=== PATIENT | male | born 1995 | race Caucasian/White ===

== ENCOUNTER 2017-03-15 19:51 | Emergency (ER) | payer OTHER ==
[~2017-03-15] VITALS: Ht 182.8 cm; Wt 79.4 kg
[~2017-03-15 19:51] MED LIST: AMOXICILLIN TRI1 POW; ANAPROX DS550 MG PO; BACTRIM DS 8001 TA1 PO; BACTROBAN CREAM15 GM PO; CLARITIN5 MG/5 ML; CLINDAMYCIN HC300 MG PO; DOXYCYCLINE HY100 M3 PO; FLEXERIL10 MG PO; KEFLEX500 M1 PO; MOTRIN400 MG PO; MOTRIN800 MG PO; Motrin,Rufen800 MG PO; NAPROSYN500 MG PO; NORCO 325 MG-51 TAB PO; PEPCID20 MG PO; PREDNICOT20 MG PO; PREDNISONE10 MG PO; PREDNISONE20 M1 PO; VIBRAMYCIN100 MG PO; VICODIN 5/500 505 MG PO
[2017-03-15 20:35] VITALS: BP 124/65
[2017-03-15] MEDS ORDERED: ATARAX,VISTARIL50 MG PO (20:46)
== END 2017-03-15 20:56 | disposition home or self-care (01) ==
LOC: ED 19:51
DX: L25.5 Unspecified contact dermatitis due to plants, except food (principal); F17.200 Nicotine dependence, unspecified, uncomplicated; Z88.6 Allergy status to analgesic agent; Z88.7 Allergy status to serum and vaccine; Z88.8 Allergy status to other drugs, medicaments and biological substances

== ENCOUNTER → 2017-04-20 | Outpatient (CLI) | payer OTHER ==
[~2017-04-20] MED LIST changes: +ATARAX,VISTARIL50 MG PO
== END | disposition home or self-care (01) ==
LOC: RAD 17:01
DX: M25.561 Pain in right knee (principal)

== ENCOUNTER 2017-06-28 18:56 | Emergency (ER) | payer OTHER ==
[~2017-06-28] VITALS: Ht 182.8 cm; Wt 79.4 kg
[2017-06-28 19:12] VITALS: BP 123/71
[2017-06-28] MEDS ORDERED: CEPHALEXIN500 M1 PO (20:47)
== END 2017-06-28 21:37 | disposition home or self-care (01) ==
LOC: ED 18:56
DX: L08.89 Other specified local infections of the skin and subcutaneous tissue (principal); F17.200 Nicotine dependence, unspecified, uncomplicated; Z88.7 Allergy status to serum and vaccine; Z88.5 Allergy status to narcotic agent; Z88.6 Allergy status to analgesic agent

== ENCOUNTER 2017-07-10 17:57 | Emergency (ER) | payer OTHER ==
[~2017-07-10] VITALS: Wt 79.4 kg
[~2017-07-10 17:57] MED LIST changes: +CEPHALEXIN500 M1 PO
[2017-07-10 18:01] VITALS: BP 124/56
== END 2017-07-10 18:51 | disposition home or self-care (01) ==
LOC: ED 17:57
DX: S05.8X2A Other injuries of left eye and orbit, initial encounter (principal); F17.200 Nicotine dependence, unspecified, uncomplicated; Z88.7 Allergy status to serum and vaccine; Z88.6 Allergy status to analgesic agent; Z88.8 Allergy status to other drugs, medicaments and biological substances; X58.XXXA Exposure to other specified factors, initial encounter; Y93.9 Activity, unspecified; Y92.9 Unspecified place or not applicable; Y99.9 Unspecified external cause status

== ENCOUNTER 2017-11-13 19:40 | Emergency (ER) | payer SELFPAY ==
[~2017-11-13] VITALS: Ht 182.8 cm; Wt 65.8 kg
[2017-11-13 19:46] VITALS: BP 122/67
[2017-11-13] MEDS ORDERED: AMOXICILLIN500 M3 PO (21:03)
== END 2017-11-13 21:07 | disposition home or self-care (01) ==
LOC: ED 19:40
DX: R50.9 Fever, unspecified (principal); F17.200 Nicotine dependence, unspecified, uncomplicated; Z88.6 Allergy status to analgesic agent; Z88.8 Allergy status to other drugs, medicaments and biological substances; Z88.7 Allergy status to serum and vaccine

== ENCOUNTER 2019-04-25 23:47 | Emergency (ER) | payer OTHER ==
[~2019-04-25] VITALS: Ht 182.8 cm; Wt 64.9 kg
[~2019-04-25 23:47] MED LIST changes: +AMOXICILLIN500 M3 PO
[2019-04-25 23:48] VITALS: BP 115/75
[2019-04-26] MEDS ORDERED: MOBIC7.5 MG PO (01:32)
[2019-04-26] MEDS ORDERED: CYCLOBENZAPRINE10 MG PO (01:32)
== END 2019-04-26 01:47 | disposition home or self-care (01) ==
LOC: ED 23:47
DX: S16.1XXA Strain of muscle, fascia and tendon at neck level, initial encounter (principal); S46.912A Strain of unspecified muscle, fascia and tendon at shoulder and upper arm level, left arm, initial encounter; F17.200 Nicotine dependence, unspecified, uncomplicated; Z88.7 Allergy status to serum and vaccine; Z88.5 Allergy status to narcotic agent; Z88.8 Allergy status to other drugs, medicaments and biological substances; V89.2XXA Person injured in unspecified motor-vehicle accident, traffic, initial encounter; Y93.89 Activity, other specified; Y92.89 Other specified places as the place of occurrence of the external cause; Y99.8 Other external cause status

== ENCOUNTER 2019-07-29 16:12 | Emergency (ER) | payer SELFPAY ==
[~2019-07-29] VITALS: Ht 182.8 cm; Wt 68.0 kg
[~2019-07-29 16:12] MED LIST changes: +CYCLOBENZAPRINE10 MG PO; +MOBIC7.5 MG PO
[2019-07-29 16:14] VITALS: BP 129/74
[2019-07-29] MEDS ORDERED: PREDNISONE20 M1 PO (16:39)
[2019-07-29] MEDS ORDERED: LIDEX 0.05% CRE15 GM T (16:39)
== END 2019-07-29 16:46 | disposition home or self-care (01) ==
LOC: ED 16:12
DX: L25.9 Unspecified contact dermatitis, unspecified cause (principal); Z88.7 Allergy status to serum and vaccine; Z88.6 Allergy status to analgesic agent; Z88.8 Allergy status to other drugs, medicaments and biological substances

== ENCOUNTER 2019-12-14 19:14 | Emergency (ER) | payer SELFPAY ==
[~2019-12-14] VITALS: Ht 185.4 cm; Wt 79.4 kg
[~2019-12-14 19:14] MED LIST changes: +LIDEX 0.05% CRE15 GM T
[2019-12-14 19:21] VITALS: BP 130/78
[2019-12-14] MEDS ORDERED: Motrin,Rufen800 MG PO (21:14)
[2019-12-14] MEDS ORDERED: CYCLOBENZAPRINE5 M3 PO (21:14)
== END 2019-12-14 21:29 | disposition home or self-care (01) ==
LOC: ED 19:14
DX: S16.1XXA Strain of muscle, fascia and tendon at neck level, initial encounter (principal); S89.91XA Unspecified injury of right lower leg, initial encounter; Z88.7 Allergy status to serum and vaccine; Z88.5 Allergy status to narcotic agent; Z88.8 Allergy status to other drugs, medicaments and biological substances; Z79.899 Other long term (current) drug therapy; V49.9XXA Car occupant (driver) (passenger) injured in unspecified traffic accident, initial encounter; Y93.I9 Activity, other involving external motion; Y92.488 Other paved roadways as the place of occurrence of the external cause; Y99.8 Other external cause status

== ENCOUNTER 2020-07-31 11:54 | Emergency (ER) | payer SELFPAY ==
[~2020-07-31] VITALS: Wt 68.0 kg
[~2020-07-31 11:54] MED LIST changes: +CYCLOBENZAPRINE5 M3 PO
[2020-07-31 11:58] VITALS: BP 112/47
== END 2020-07-31 13:56 | disposition home or self-care (01) ==
LOC: ED 11:54
DX: S93.401A Sprain of unspecified ligament of right ankle, initial encounter (principal); Y99.8 Other external cause status; F17.200 Nicotine dependence, unspecified, uncomplicated; X58.XXXA Exposure to other specified factors, initial encounter; Y93.89 Activity, other specified; Y92.89 Other specified places as the place of occurrence of the external cause

== ENCOUNTER 2021-01-02 21:45 | Emergency (ER) | payer SELFPAY ==
[2021-01-02 21:50] VITALS: BP 130/84
[2021-01-02 22:23] LABS: BILIRUBIN Negative (Negative); BLOOD 2+ (Negative); CLARITY Clear (Clear); COLOR Yellow (Yellow); GLUCOSE Negative (Negative); KETONE Trace (Negative); LEUKO ESTERASE 2+ (Negative); NITRITE Negative (Negative); PH 5.5 (4.5-8.0); SPECIFIC GRAVITY >= 1.030 (1.001-1.030)
[2021-01-02 22:45] LABS: BACTERIA TRACE; EPITHELIAL CELLS 0-2; RBC 16-20 rbc/hpf (0-2); WBC 21-30 wbc/hpf (0-5)
[2021-01-02 22:46] LABS: MUCOUS 1+
== END 2021-01-02 22:50 | disposition home or self-care (01) ==
LOC: ED 21:45
PROVIDERS: Nurse Practitioner Family
DX: Z11.3 Encounter for screening for infections with a predominantly sexual mode of transmission (principal); Z88.8 Allergy status to other drugs, medicaments and biological substances; Z88.5 Allergy status to narcotic agent

== ENCOUNTER 2021-01-21 21:48 | Emergency (ER) | payer BC ==
[2021-01-21 21:56] VITALS: BP 119/70
[2021-01-21 22:35] LABS: BILIRUBIN Negative (Negative); BLOOD Trace-Lysed (Negative); CLARITY Clear (Clear); COLOR Yellow (Yellow); GLUCOSE Negative (Negative); KETONE Trace (Negative); LEUKO ESTERASE Negative (Negative); NITRITE Negative (Negative); SPECIFIC GRAVITY 1.025 (1.001-1.030)
== END 2021-01-21 22:52 | disposition home or self-care (01) ==
LOC: ED 21:48
PROVIDERS: Emergency Medicine
DX: Z11.3 Encounter for screening for infections with a predominantly sexual mode of transmission (principal); F17.200 Nicotine dependence, unspecified, uncomplicated; Z88.5 Allergy status to narcotic agent; Z88.8 Allergy status to other drugs, medicaments and biological substances

== ENCOUNTER 2021-03-10 17:39 | Emergency (ER) | payer BC ==
[~2021-03-10] VITALS: Wt 79.4 kg
[2021-03-10 17:46] VITALS: BP 123/80
[2021-03-10] MEDS ORDERED: MEDROL DOSEPAK4 MG PO (18:04)
[2021-03-10] MEDS ORDERED: CLARITIN10 MG PO (18:04)
== END 2021-03-10 18:16 | disposition home or self-care (01) ==
LOC: ED 17:39
DX: L23.7 Allergic contact dermatitis due to plants, except food (principal); Z88.8 Allergy status to other drugs, medicaments and biological substances; Z88.5 Allergy status to narcotic agent

== ENCOUNTER 2021-04-11 15:40 | Emergency (ER) | payer BC ==
[~2021-04-11] VITALS: Wt 74.8 kg
[~2021-04-11 15:40] MED LIST changes: +CLARITIN10 MG PO; +MEDROL DOSEPAK4 MG PO
[2021-04-11 15:41] VITALS: BP 130/77
[2021-04-11 16:32] LABS: BASO % 0.3 % (0.0-1.0); EOS # 0.1 10*3/uL (0.0-0.4); EOS % 0.7 % (1.0-4.0); HEMATOCRIT 41.2 % (42.0-52.0); LYMPH % 8.3 % (27.0-41.0); MEAN CELL VOLUME 84.8 fl (80.0-94.0); MEAN CORPUSCULAR HGB 29.6 pg (27.0-31.0); MEAN PLATELET VOLUME 10.8 fl (9.6-12.3); MONO # 0.7 10*3/uL (0.1-1.0); MONO % 5.7 % (3.0-9.0); NEUT # 10.3 10*3/uL (2.3-7.9); NEUT % 84.8 % (47.0-73.0); PLATELET COUNT AUTOMATED 296 10*3/uL (130-400); RED BLOOD COUNT 4.86 10*6/uL (4.50-5.90); RED CELL DISTRI WIDTH 11.9 % (0-14.5); WHITE BLOOD COUNT 12.2 10*3/uL (4.8-10.8)
[2021-04-11 16:48] LABS: ALBUMIN 3.5 gm/dl (3.1-4.5); ALKALINE PHOSPHATASE 60 U/L (45-117); BUN 9 mg/dl (7-24); CHLORIDE 108 mmol/L (98-107); CREATININE 0.92 mg/dL (0.70-1.30); POTASSIUM 3.5 mmol/L (3.5-5.1); SGOT/AST 13 IU/L (3-35); SGPT/ALT 21 U/L (12-78); SODIUM 138 mmol/L (136-145); TOTAL PROTEIN 7.1 gm/dL (6.4-8.2)
[2021-04-11 17:53] LABS: BILIRUBIN Negative (Negative); BLOOD Negative (Negative); CLARITY Clear (Clear); COLOR Yellow (Yellow); GLUCOSE Negative (Negative); KETONE Negative (Negative); LEUKO ESTERASE Negative (Negative); NITRITE Negative (Negative); SPECIFIC GRAVITY 1.015 (1.001-1.030)
[2021-04-11 17:59] LABS: WBC 0-2 wbc/hpf (0-5)
== END 2021-04-11 18:01 | disposition home or self-care (01) ==
LOC: ED 15:40
PROVIDERS: Emergency Medicine
DX: B34.9 Viral infection, unspecified (principal); Z20.822 Contact with and (suspected) exposure to COVID-19; Z88.5 Allergy status to narcotic agent; Z79.899 Other long term (current) drug therapy

== ENCOUNTER 2021-05-24 20:32 | Emergency (ER) | payer BC ==
[~2021-05-24] VITALS: Ht 177.8 cm; Wt 64.9 kg
[2021-05-24 21:29] VITALS: BP 134/64
[2021-05-24] MEDS ORDERED: PREDNISONE10 MG PO (22:17)
== END 2021-05-24 22:35 | disposition home or self-care (01) ==
LOC: ED 20:32
DX: L23.7 Allergic contact dermatitis due to plants, except food (principal); Z79.899 Other long term (current) drug therapy; Z88.5 Allergy status to narcotic agent

== ENCOUNTER 2022-08-26 23:28 | Emergency (ER) | payer OTHER ==
[~2022-08-26] VITALS: Ht 182.8 cm; Wt 79.4 kg
[2022-08-27 00:29] VITALS: BP 99/60
[2022-08-27 02:31] LABS: BASO % 0.4 % (0.0-1.0); EOS % 0.4 % (1.0-4.0); HEMATOCRIT 39.8 % (42.0-52.0); LYMPH # 0.5 10*3/uL (1.3-4.4); LYMPH % 5.9 % (27.0-41.0); MEAN CELL VOLUME 85.4 fl (80.0-94.0); MEAN CORPUSCULAR HGB CONC 35.2 g/dl (33.0-37.0); MEAN PLATELET VOLUME 10.6 fl (9.6-12.3); MONO # 0.7 10*3/uL (0.1-1.0); NEUT # 6.7 10*3/uL (2.3-7.9); PLATELET COUNT AUTOMATED 249 10*3/uL (130-400); RED BLOOD COUNT 4.66 10*6/uL (4.50-5.90); RED CELL DISTRI WIDTH 11.7 % (0-14.5); WHITE BLOOD COUNT 7.9 10*3/uL (4.8-10.8)
[2022-08-27 02:48] LABS: ALKALINE PHOSPHATASE 50 U/L (45-117); BUN 16 mg/dl (7-24); CHLORIDE 106 mmol/L (98-107); CREATININE 1.15 mg/dL (0.70-1.30); POTASSIUM 3.7 mmol/L (3.5-5.1); SGOT/AST 17 IU/L (3-35); SGPT/ALT 24 U/L (12-78); SODIUM 138 mmol/L (136-145); TOTAL PROTEIN 7.1 gm/dL (6.4-8.2)
== END 2022-08-27 06:24 | disposition home or self-care (01) ==
LOC: ED 23:28
PROVIDERS: Emergency Medicine
DX: U07.1 COVID-19 (principal); B34.9 Viral infection, unspecified; Z88.8 Allergy status to other drugs, medicaments and biological substances

== ENCOUNTER → 2022-09-16 | Outpatient (CLI) | payer OTHER ==
[2022-09-16 11:57] LABS: BASO # 0.1 10*3/uL (0.0-0.1); BASO % 0.6 % (0.0-1.0); EOS # 0.2 10*3/uL (0.0-0.4); HEMATOCRIT 42.4 % (42.0-52.0); LYMPH # 2.8 10*3/uL (1.3-4.4); LYMPH % 32.2 % (27.0-41.0); MEAN CELL VOLUME 86.4 fl (80.0-94.0); MEAN CORPUSCULAR HGB 30.3 pg (27.0-31.0); MEAN CORPUSCULAR HGB CONC 35.1 g/dl (33.0-37.0); MONO # 0.5 10*3/uL (0.1-1.0); MONO % 6.3 % (3.0-9.0); NEUT % 58.4 % (47.0-73.0); PLATELET COUNT AUTOMATED 318 10*3/uL (130-400); RED BLOOD COUNT 4.91 10*6/uL (4.50-5.90); RED CELL DISTRI WIDTH 11.8 % (0-14.5); WHITE BLOOD COUNT 8.6 10*3/uL (4.8-10.8)
[2022-09-16 12:15] LABS: BUN 11 mg/dl (7-24); CHLORIDE 110 mmol/L (98-107); CREATININE 0.83 mg/dL (0.70-1.30); LDH 137 U/L (87-241); SODIUM 142 mmol/L (136-145); URIC ACID 5.3 mg/dL (3.5-7.2)
[2022-09-20 17:06] LABS: TB1 Ag VALUE 0.04 IU/mL (.)
== END | disposition home or self-care (01) ==
LOC: LAB 11:13
PROVIDERS: ATTEND Family Medicine
DX: R59.0 Localized enlarged lymph nodes (principal)

== ENCOUNTER 2022-10-14 23:47 | Emergency (ER) | payer OTHER ==
[~2022-10-14] VITALS: Wt 72.6 kg
[2022-10-14 23:55] VITALS: BP 144/88
[2022-10-15 01:57] LABS: BILIRUBIN Negative (Negative); BLOOD Trace-Lysed (Negative); CLARITY Clear (Clear); COLOR Yellow (Yellow); GLUCOSE Negative (Negative); KETONE Negative (Negative); LEUKO ESTERASE Negative (Negative); NITRITE Negative (Negative); SPECIFIC GRAVITY 1.025 (1.001-1.030); UROBILINOGEN 0.2 E.U./dl (0.0-1.0)
[2022-10-15 02:14] LABS: MUCOUS 1+
== END 2022-10-15 02:29 | disposition home or self-care (01) ==
LOC: ED 23:47
PROVIDERS: Emergency Medicine
DX: N50.89 Other specified disorders of the male genital organs (principal); Z88.8 Allergy status to other drugs, medicaments and biological substances; Z90.89 Acquired absence of other organs

== ENCOUNTER 2024-04-21 10:22 | Emergency (ER) | payer OTHER ==
[~2024-04-21] VITALS: Ht 182.8 cm; Wt 79.4 kg
[2024-04-21 10:30] VITALS: BP 121/80
[2024-04-21] MEDS ORDERED: Tetracaine Hydrochloride 0.5% 4 ML BOT OPH ONE (10:40)
[2024-04-21] MEDS ORDERED: FLUORESCEIN SODIUM 1 MG STRIP OPH ONE (10:45)
[2024-04-21] MEDS ORDERED: ERYTHROMYCIN OPH1 GM OPH (11:05)
== END 2024-04-21 11:14 | disposition home or self-care (01) ==
LOC: ED 10:22
DX: H16.133 Photokeratitis, bilateral (principal); S05.02XA Injury of conjunctiva and corneal abrasion without foreign body, left eye, initial encounter; S05.01XA Injury of conjunctiva and corneal abrasion without foreign body, right eye, initial encounter; F90.9 Attention-deficit hyperactivity disorder, unspecified type; Z88.5 Allergy status to narcotic agent; Z98.890 Other specified postprocedural states; Z87.891 Personal history of nicotine dependence; W89.8XXA Exposure to other man-made visible and ultraviolet light, initial encounter; Y93.89 Activity, other specified; Y92.89 Other specified places as the place of occurrence of the external cause; Y99.8 Other external cause status

== ENCOUNTER 2024-08-22 17:38 | Emergency (ER) | payer OTHER ==
[~2024-08-22] VITALS: Ht 182.8 cm; Wt 77.1 kg
[~2024-08-22 17:38] MED LIST changes: +ERYTHROMYCIN OPH1 GM OPH
[2024-08-22 17:50] VITALS: BP 122/59
[2024-08-22] MEDS ORDERED: IBUPROFEN 800 MG TAB PO ONE (19:15)
[2024-08-22] MEDS ORDERED: VIBRAMYCIN100 MG PO (20:23)
[2024-08-22] MEDS ORDERED: Doxycycline Hyclate 100 MG CAP PO ONE (20:30)
== END 2024-08-22 20:42 | disposition home or self-care (01) ==
LOC: ED 17:38
DX: J18.9 Pneumonia, unspecified organism (principal); Z20.822 Contact with and (suspected) exposure to COVID-19; G43.909 Migraine, unspecified, not intractable, without status migrainosus; Z88.5 Allergy status to narcotic agent; Z79.899 Other long term (current) drug therapy